=== PATIENT | female | born 1965 | race Caucasian/White ===

== ENCOUNTER 2018-05-15 19:00 | Emergency (ER) | payer SELFPAY ==
[~2018-05-15] VITALS: Ht 167.6 cm; Wt 100.0 kg
[2018-05-15 19:03] VITALS: BP 160/92
== END 2018-05-15 20:30 | disposition left against medical advice (07) ==
LOC: ER 19:05
DX: E13.69 Other specified diabetes mellitus with other specified complication (principal); R25.1 Tremor, unspecified; Z53.21 Procedure and treatment not carried out due to patient leaving prior to being seen by health care provider
CPT/HCPCS: 82962